=== PATIENT | male | born 1960 | race Caucasian/White ===

== ENCOUNTER 2023-08-23 13:42 | Emergency (ER) | payer MEDICARE, OTHER ==
[~2023-08-23] VITALS: Ht 175.3 cm; Wt 109.1 kg
[2023-08-23 15:17] VITALS: BP 138/87; PULSE 92; TEMP 98.4
== END 2023-08-23 15:17 | disposition home or self-care (01) ==
LOC: COL.ER 13:42
DX: S01.81XA Laceration without foreign body of other part of head, initial encounter (principal); Z23 Encounter for immunization; W54.8XXA Other contact with dog, initial encounter